=== PATIENT | female | born 1970 | race Caucasian/White ===

== ENCOUNTER 2021-03-15 18:05 | Emergency (ER) | payer OTHER ==
[2021-03-15 18:30] VITALS: BP 143/91; PULSE 80; TEMP 99.1; BMI 19.8
== END 2021-03-15 20:06 | disposition home or self-care (01) ==
LOC: FER 18:05
DX: S80.911A Unspecified superficial injury of right knee, initial encounter (principal); S93.401A Sprain of unspecified ligament of right ankle, initial encounter; W18.42XA Slipping, tripping and stumbling without falling due to stepping into hole or opening, initial encounter; Y92.9 Unspecified place or not applicable
CPT/HCPCS: 73562-TC-RT-FY; 73610-TC-RT-FY; 73630-TC-RT-FY; 99284-25